=== PATIENT | female | born 1975 | race Caucasian/White ===

== ENCOUNTER 2025-06-24 06:29 | Inpatient (IN) | payer BC, SELFPAY ==
[2025-06-24] VITALS (12 sets, daily range): BP systolic 116–150; BP diastolic 69–92; BMI 33.9; BMI 33.1
--- NOTE | 2025-06-24 04:52 | ED.GENMED ---
History of Present Illness
General
Chief Complaint: Abdominal Pain
Time Seen by Provider: 06/24/25 04:53
History of Present Illness
History of Present Illness:
FOCUSED PAST MEDICAL HISTORY
- Anemia
REVIEW OF OLD RECORDS
- Patient was admitted with a right tibial fracture in 2019 and was also having acute on chronic iron deficiency anemia
- Her hemoglobin was as low as 6.4 and improved to 7.6 after unit of blood.
- At that time it was felt that her anemia was related to menstrual blood loss patient states that she has not had any vaginal bleeding/menses regularly since 3 months ago
Note:
CHIEF COMPLAINT(S)
Shortness of breath and rectal bleeding.
HISTORY OF PRESENT ILLNESS
The patient is a 49-year-old female with a history of iron deficiency anemia, currently receiving iron infusions. She reports an onset of rectal bleeding that began tonight, which she describes as red in color. She also notes a longstanding history
of shortness of breath, which she feels is worsening. The patient has experienced abdominal bloating and severe pain since 8:00 PM, with the pain escalating in intensity. She describes multiple episodes of diarrhea, mentioning that the bowel
movement was dark with an eventual presence of visible blood, resembling coffee grounds with red. The patient states her hemoglobin was recently measured at 7.7, down from 10 two months prior. She was advised to consider a blood transfusion in
addition to iron infusions. The patient denies vomiting blood but experiences nausea and a sensation of fullness without emesis. She reports being unable to catch her breath easily, even with minimal exertion like putting on shoes. There is no
recent history of colitis.
PAST MEDICAL AND SURGICAL HISTORY
Iron deficiency anemia.
CHRONIC MEDICAL CONDITIONS SIGNIFICANTLY AFFECTING CARE
Iron deficiency anemia.
PHYSICAL EXAM
General: Alert, appears somewhat uncomfortable
Skin: Warm, dry.
Head: Normocephalic, atraumatic.
Neck: Supple, trachea midline.
Eyes, Ears, Nose, and Throat: Oral mucosa moist.
Cardiovascular: Normal peripheral perfusion, No edema.
Respiratory: Respirations are non-labored.
Gastrointestinal: Abdomen nondistended, diffuse abdominal tenderness. Brown liquid stool briskly heme positive. No hemorrhoids noted.
Back: Normal range of motion, Normal alignment.
Musculoskeletal: Normal range of motion, normal strength.
Neurological: Alert and oriented to person, place, time, and situation, No focal neurological deficit observed.
Psychiatric: Cooperative, appropriate mood & affect.
PLAN
Order blood work, including type and screen.
Administer nausea medication and fluids.
Prescribe stomach acid medication.
Consider a possible transfusion based on blood work results.
Perform a computed tomography (CT) scan of the abdomen.
Perform a chest X-ray.
Evaluate for the necessity of further diagnostic interventions based on initial test outcomes.
DIFFERENTIAL DIAGNOSIS
The Differential Diagnosis includes, in no particular order and is not limited to:
1. Gastrointestinal bleed
2. Iron deficiency anemia exacerbation
3. Peptic ulcer disease with bleeding
4. Colitis
5. Gastrointestinal malignancy
6. Hemorrhoids
7. Esophageal varices
8. Diverticular disease
9. Inflammatory bowel disease
10. Upper gastrointestinal tract bleeding
SUMMARY OF ENCOUNTER
The patient, a 49-year-old female with iron deficiency anemia currently on iron infusions, presented to the emergency department with worsening shortness of breath and rectal bleeding. She described the bleeding as red and reported severe abdominal
pain and bloating beginning in the evening. Her bowel movements appeared dark with visible blood. Recent hemoglobin levels were 7.7 but are now 7.3. She was evaluated for a blood transfusion due to the significant drop in hemoglobin. Her respiratory
symptoms did not improve with minimal exertion.
ASSESSMENT
Symptomatic anemia likely due to gastrointestinal bleeding, contributing to the patients worsened shortness of breath and weakness.
PLAN
- Administer nausea medication and fluids to manage symptoms.
- Consider blood transfusion pending comprehensive lab results.
- Prescribe medication to reduce stomach acid.
- Conduct CT scan of the abdomen to identify potential sources of gastrointestinal bleeding or pathology.
- Perform chest X-ray to evaluate for any respiratory complications.
- Continuous monitoring and reassessment to determine further diagnostic or therapeutic interventions.
INDEPENDENT REVIEW OF LABS AND INTERPRETATION OF TESTS
My independent review of hemoglobin indicates a level of 7.3, which is low and concerning for anemia, consistent with recent lab values indicating a previous level of 7.7.
My independent interpretation of the chest X-ray shows a clear result, ruling out acute respiratory processes.
My independent interpretation of the CT scan is pending to evaluate potential sources of gastrointestinal bleeding or other pathologies.
PROCEDURES
CT scan of the abdomen was obtained to investigate gastrointestinal bleeding.
MEDICATION RECONCILIATION
Iron infusions ongoing. Consideration for blood transfusion based on hemoglobin levels. Prescribe antiemetic medication and proton pump inhibitor for symptom management.
MEDICAL DECISION MAKING
-Complexity of Data Reviewed: Chronic conditions affecting care include iron deficiency anemia. Differential Diagnosis includes gastrointestinal bleeding, iron deficiency anemia exacerbation, peptic ulcer disease with bleeding, hemorrhoids,
gastrointestinal malignancy, esophageal varices, diverticular disease, and upper gastrointestinal tract bleeding.
-Data:
Category 1
Reviewed non-emergency department records, including a history of laboratory values and patient-reported medical data.
Tests ordered: Hemoglobin level, CT scan of the abdomen, and chest X-ray.
Category 2
My independent interpretation of chest X-ray which was clear.
My independent review of the CT scan as pending for final interpretation.
Care significantly affected by abnormal hemoglobin.
-Risk:
Prescription medication was considered, including possible anticoagulants post-transfusion.
DIAGNOSIS
- Symptomatic anemia, ICD-10: D64.9
- Gastrointestinal bleeding, initial encounter, ICD-10: K92.2
RADIOLOGY
- Chest x-ray clear
- CT abdomen pelvis suggests short segment colitis
EKG
- Sinus 71, left axis deviation, no acute ST abnormality
LABS
- Hemoglobin 7.3, normal CRP
UPDATE
- Hemoglobin 7.3 w/ GI Bleed
- Has chronic iron deficiency anemia causing chronic SOB (but is now worsening).
- Multiple outpt iron infusions w/ [facility] and says outpt hgb was as high as 10-11 more recently.
- Briskly heme positive liquid brown stool. In past, was told low hgb was due to periods, but she has not been getting periods recently.
- BUN normal. hCG neg.
- Was anemic in 2019 when she was here and received blood transfusion.
- I have ordered one unit as she is symptomatic, but reports rather debilitating symptoms (weak, SOB, abd pain).
- RA sat 100%; doubt PE as I feel anemia is much more likely cause of SOB as the SOB has been a slow chronic progression of worsening.
- Normal BNP and cRP, but WBC 14. Had CT a/p.
Past History
Past History
ED Past Surgical History: Gynecological
Social History
Tobacco: Smoker
Alcohol: Occasional
Personal: Single
Employment: Employed
Phy Exam
Physical Exam
Physical Exam:
See HPI
Course
Orders/Labs/Results
Orders:
Orders
06/24/25 04:52
0.9% Sodium Chloride 1000 ml [Nss] 1,000 ml IV BOLUS
Test Result ONCE
06/24/25 05:02
CT Abd/pelvis W Iv Cont Urgent
Comment:
Reason For Exam: diffuse abd pain; bloody diarrhea
CR Chest - 2 Views Urgent
Comment:
Reason For Exam: sob
06/24/25 05:06
Famotidine [Pepcid] 20 mg IV NOW STA
Ondansetron Injectable [Zofran] 4 mg IV NOW STA
Pantoprazole [Protonix IV] 40 mg IV NOW STA
06/24/25 05:07
Type+Screen Urgent
CRP [C-Reactive Protein] Urgent
Complete Blood Count/With Diff Urgent
Comprehensive Metabolic Panel Urgent
Ferritin Urgent
HCG, Serum Qualitative Screen Urgent
Iron Urgent
Lipase Urgent
NT-proBNP Urgent
Total Iron Binding Urgent
06/24/25 05:19
* Blood Bank Products Urgent
Blood Bank Products: *Packed RBC Leuko (PRBC's
Quantity: 1
Transfuse Today: Yes
Reason: Anemia
06/24/25 Breakfast
NPO
Allow oral meds: Yes
Allow clear liquids: Sips of Clears
06/24/25 06:07
Electrocardiogram (*1) Urgent
Reason for Study: Shortness of Breath
EKG- Treatment ONCE
06/24/25 06:18
Admit/Transfer Patient As Directed
Co-Sign Provider:
Level of Care: Inpatient admission
Assign to:: Telemetry
Physician / Group: Reed
Diagnosis: Colitis, Acute / Chronic Anemia
Reason for Telemetry: Arrhythmia
Date to Stop Telemetry: 06/27/25
Time to Stop Telemetry: 11:00
Reason for Hospitalization: Colitis, Acute / Chronic Anemia
Expected length of stay greater than two midnights?: Yes
ELOS- Estimated Length of Stay in days: 3
I certify the patient meets the requirements for IP care: Yes
PRN Pain Medication Management As Directed
May give lesser potent ordered pain med per pt: Yes
preference::
Protocol:: Medication orders for pain may be administered in a
manner that supports deferring to patient preference
when the pt is:
- Requesting an ordered lesser potent pain medication.
Least to most potent pain medications are defined
as: acetaminophen < NSAID < tramadol < opioids
(morphine, oxycodone, hydromorphone).
- Requesting a lesser dose of the same medication IF
ORDERED.
- Requesting a less intrusive route of administration
if both routes are prescribed by the provider (PO <
IV).
06/24/25 06:19
Code Status As Directed
Resuscitation Status: Full Code
06/24/25 06:23
Lactic Acid Urgent
06/24/25 06:28
Piperacillin/Tazo 3.375 Gram [Zosyn] 3.375 gram in 50 ml IV NOW
06/24/25 11:45
0.9% Sodium Chloride 1000 ml [Nss] 1,000 ml IV 75 mls/hr
Acetaminophen [Tylenol] 650 mg PO Q4HPRN PRN
HYDROmorphone [Dilaudid] 0.5 mg IV Q4HPRN PRN
Ondansetron Injectable [Zofran] 4 mg IV Q6HPRN PRN
06/24/25 11:45
Consult Notification Routine
Specialty to Notify: Gastroenterology
Date consulting provider notified: 06/24/25
Time consulting provider notified: 12:40
Notified:: Provider
Comment: Sheree
GASTROINTESTINAL CONSULT Routine
Consulting Provider: Willow Doe
Was physician already notified: No
Reason for consult: Colitis, Acute / Chronic Anemia
Stool Culture Routine
SELENA Source: Feces/Stool
Specimen Description:
Activity As Directed
Activity Level: Bedrest
EKG with chest pain [ECG as needed] As Directed
ECG as needed for:: Chest Pain
I/O [Intake/ Output] As Directed
Frequency: Per unit guidelines
Pneumatic Compression Sleeves As Directed
Type: Knee high
Vital Signs As Directed
Frequency: Per unit guidelines
Oxygen Therapy [O2 Therapy] [RESP] Routine
Titrate/Wean O2 to maintain O2 sat greater than (%): 94
DX Deep Vein Thrombosis Video Routine
06/24/25 12:00
Piperacillin/Tazo 3.375 Gram [Zosyn] 3.375 gram in 50 ml IV Q6H
06/24/25 12:13
HH [H&H] Q8H
06/24/25 20:52
HH [H&H] Q8H
06/25/25 03:45
HH [H&H] Q8H
06/25/25 06:00
Basic Metabolic Panel IN AM
Complete Blood Count/No Diff IN AM
06/25/25 08:00
Pantoprazole [Protonix IV] 40 mg IV DAILY
06/27/25 11:00
DC Protocol for Telemetry ONCE
Abnormal Lab Results
06/24/25
05:07
WBC 14.2 H 10^3/uL
(4.8-10.8)
RBC 2.86 L 10^6/uL
(4.20-5.40)
Hgb 7.3 L g/dL
(12.0-16.0)
Hct 24.2 L %
(37.0-47.0)
MCH 25.5 L pg
(27.0-31.0)
MCHC 30.2 L g/dL
(33.0-37.0)
RDW 17.8 H %
(11.5-14.5)
Plt Count 449 H 10^3/uL
(130-400)
Abs Immat Gran (auto) 0.2 H 10^3/uL
(0-0.05)
Absolute Neuts (auto) 11.0 H 10^3/uL
(1.4-6.5)
Absolute Monos (auto) 0.8 H 10^3/uL
(0.1-0.6)
Immature Gran % 1.2 H %
(0-0.5)
Neutrophils % 77.2 H %
(42.2-75.2)
Lymphocytes % 11.9 L %
(20.5-51.1)
Chloride 108 H mmol/L
(98-107)
Carbon Dioxide 21 L mmol/L
(22-30)
Glucose 119 H mg/dl
(70-99)
Crossmatch IS Only See Detail
06/24/25 05:07
06/24/25 05:07
Vital Signs
Initial and Last Documented VS:
Initial Vital Signs
Temp Pulse Resp BP Pulse Ox
36.4 C 98 22 144/92 98
06/24/25 04:46 06/24/25 04:46 06/24/25 04:46 06/24/25 04:46 06/24/25 04:46
Last Documented Vital Signs
Temp Pulse Resp BP Pulse Ox
37.0 C 87 18 138/80 96
06/24/25 19:52 06/24/25 19:52 06/24/25 19:52 06/24/25 19:52 06/24/25 19:52
*Pulse Oximetry
SaO2: 98
Oxygen Mode of Delivery: Room air
Patient hypoxic: no
*Critical Care Note
Total Time (30-74mins, 75-104mins- exclusive of procedures): Not Applicable
ED Attending Note
-
Portions of this chart may have been created with voice recognition software.� Occasional wrong word or��sound alike� substitutions may have occurred due to the inherent limitations of voice recognition software.
Discharge Plan
Departure
Patient Disposition: Admit
Date of Disposition: 06/24/25
Time of Disposition: 05:54
Presentation/result/management discussed w/ accepting MD/DO: Hospitalist
Discharge Problem:
Symptomatic anemia
Interventions
Interventions:
*Risk Screen - Suicide Last Done: 06/24/25 12:25
*General Assessment Last Done: 06/24/25 05:01
*Neglect/Abuse Screening Last Done: 06/24/25 04:46
*ED COVID-19 Vaccine History Last Done: 06/24/25 12:25
*ED Influenza Vaccine History Last Done: 06/24/25 05:01
[facility] Risk Assessment Tool Last Done: 06/24/25 04:54
*Nursing Disposition Last Done: 06/24/25 11:30
ZW-Damlsp-Wpufnqnuip Assessment Last Done: 06/24/25 05:23
Discharge Date and Time
Discharge Date/Time: 06/24/25 11:38
[2025-06-24] MEDS: ZOFRAN 4 MG IV (05:14)
[2025-06-24] MEDS: NSS 1000 IV ×2 (05:14→12:15)
[2025-06-24] MEDS: PEPCID 20 MG IV (05:15)
[2025-06-24] MEDS: PROTONIX IV 40 MG IV ×2 (05:15→20:12)
[2025-06-24 05:17] LABS: Hematocrit 24.2 % (37.0-47.0); Hemoglobin 7.3 g/dL (12.0-16.0); Mean Corp Hgb Conc. 30.2 g/dL (33.0-37.0); Mean Corpuscular Volume 84.6 fL (81.0-99.0); Nucleated Red Blood Cells % 0.2 %; Platelet Count 449 10^3/uL (130-400); Red Cell Dist. Width 17.8 % (11.5-14.5)
[2025-06-24 05:29] LABS: HCG, Serum Qualitative Screen Negative
[2025-06-24 05:33] LABS: ALT (SGPT) 26 U/L (0-35); AST (SGOT) 27 U/L (14-36); Albumin 4.0 g/dl (3.5-5.0); Alkaline Phosphatase 79 U/L (38-126); Blood Urea Nitrogen 17 mg/dl (7-17); Calcium 9.3 mg/dl (8.4-10.2); Carbon Dioxide 21 mmol/L (22-30); Chloride 108 mmol/L (98-107); Estimated Creatinine Clearance 112 ml/min; Glucose 119 mg/dl (70-99); Iron 98 ug/dl (37-170); Lipase 55 U/L (23-300); Potassium 4.3 mmol/L (3.5-5.1); Sodium 137 mmol/L (135-145); Total Protein 6.4 g/dl (6.3-8.2); eGFR > 60.00
[2025-06-24 05:43] LABS: Total Iron Binding Capacity 418 ug/dl (265-497)
[2025-06-24 05:46] LABS: C-Reactive Protein 8.90 mg/L (0.0-10.00)
--- NOTE | 2025-06-24 06:21 | HPS.HSE ---
Family Physician
-
Family Physician: * NONE
Chief Complaint
-
Abd Pain, Diarrhea
History of Present Illness
Patient is a 49y F with PMH significant for iron deficiency anemia who presents to ED complaining of abdominal pain and diarrhea. Patient states that she had SOB with activity yesterday while walking around [employer]. Yesterday evening
she felt bloated and reported diffuse abdominal discomfort. She notes that she felt more SOB with activity or with bending at the waist. Patient had diarrhea overnight - including waking from sleep x 3 to have BM. Patient notes that stool was
loose and contained 'coffee' appearing material and dark / maroon blood. After her most recent episode of diarrhea / bleeding, she presented to the ED for further evaluation.
Patient has iron deficiency anemia and is followed by Hematology. She has two iron infusions last week. Her Hgb has been 10-11 since October, but recent recheck (Wednesday) was 7.7 g/dL.
She had EGD and colonoscopy at [facility] in September were reportedly unremarkable. No prior capsule study.
Anemia previously attributed to menses. She notes that her LMP was March.
Stool noted to be heme positive in the ED.
Medical History
Past Medical History
Past Medical History: Reports Other
Additional Past Medical History:
Iron Deficiency Anemia
Past Surgical History: Reports Other
Additional Past Surgical History:
ORIF Right Tibia
Tubal Ligation
Social History
Tobacco: Smoker (Occasional smoker.)
Alcohol: Occasional
Personal:
Family History
Family History: CAD and Other (Father: CAD, Colon Cancer MGF: Gastric Cancer)
Allergies / Home Medications
Allergies reflects when Allergies were last updated in [employer].
Home Medications with original date entered in [employer]
Allergy/Medication List:
Allergies
Allergy/AdvReac Type Severity Reaction Status Date / Time
sulfamethoxazole (From Allergy Mild Hives Verified 06/24/25 04:50
Bactrim)
trimethoprim (From Bactrim) Allergy Mild Hives Verified 06/24/25 04:50
Home Medications
No Meds [No Current Medications] 06/24/25
Review of Systems
-
History Source: Patient
A 12 point ROS was completed and negative except as noted: Yes
Constitutional: Reports Fatigue; Denies Fever or Chills
Respiratory: Reports Trouble Breathing; Denies Cough
Cardiac: Denies Chest Pain or Palpitations
Abdomen/GI: Reports Abdominal Pain, Nausea, Diarrhea and Bloody Stools; Denies Vomiting, Black Stools or Anorexia
: Denies Dysuria, Flank Pain or Bleeding
Musculoskeletal: Denies Joint Pain or Edema
Neurological: Reports Dizzy; Denies Headache
Psych: Denies Depression or Anxiety
Physical Exam
Vital Signs
Vital Signs
Temp Pulse Resp BP Pulse Ox
97.6 F 91 16 140/80 99
06/24/25 04:46 06/24/25 06:02 06/24/25 05:30 06/24/25 06:02 06/24/25 05:30
Physical Exam
General: Other (Pale-appearing 49y F in no acute distress.)
HEENT: Moist mucous membranes and PERRLA
Respiratory: Clear; No Wheezes, Rales or Rhonchi
Cardiac: S1/S2 and Regular Rhythm; No Murmur
GI: Other (Abdomen is tender in the RUQ and suprapubic regions. Pos bowel sounds.)
Musculoskeletal: No Clubbing, No Cyanosis and No Edema
Neuro: AO x 3
Laboratory Results
-
06/24/25 05:07
06/24/25 05:07
Laboratory Results
Total Bilirubin 0.7 mg/dl (0.2-1.3) 06/24/25 05:07
AST 27 U/L (14-36) 06/24/25 05:07
ALT 26 U/L (0-35) 06/24/25 05:07
Alkaline Phosphatase 79 U/L (38-126) 06/24/25 05:07
Lipase 55 U/L (23-300) 06/24/25 05:07
Impression/Plan
-
A/P: Patient is a 49y F with PMH significant for iron deficiency anemia who presents to ED complaining of abdominal pain and diarrhea.
Colitis
Lower GI Bleeding
- Admit for further evaluation and treatment.
- New GI symptoms including abdominal pain and bloody diarrhea that started this afternoon.
- CT scan done showing acute colitis mostly at splenic flexure area.
- ? ischemic v infectious v other. Check serum lactate.
- Empiric abx. Stool studies with next BM.
- Follow BP and avoid hypotension / hypoperfusion. CT with no specific areas of vascular stenosis / occlusion noted.
- NPO, IVF, pain control, etc.
- GI consulted for additional recommendations.
Acute Blood Loss Anemia on Chronic Iron Deficiency Anemia
- Likely secondary to new GI bleeding.
- No prior GI symptoms / obvious bleeding with anemia episodes in the past.
- Transfusion ordered in the ED. Follow H&H for changes.
- Follow for clinical improvement.
- GI eval as noted above.
DVT Prophylaxis: SCDs
Code Status: Full
[2025-06-24 06:22] LABS: Ferritin 93.5 ng/ml (6.24-137)
[2025-06-24] MEDS: ZOSYN 50 IV ×3 (06:49→17:34)
--- NOTE | 2025-06-24 08:57 | EDCM ---
Reviewed chart, pt has a history of iron deficiency anemia, admitted with colitis and chronic anemia, receiving blood transfusion in ED.
I met with pt and her , they live [place] [address] [facility], pt is independent in ADLs, personal care and ambulation. No assistive device, no DME in home.
Confirms prescription coverage
No hx VN or SNF
Does not currently have PCP, has appt to establish new PCP next month
Pharmacy: [facility] [place]
Anticipate discharge home, no needs, CM will continue to follow.
--- NOTE | 2025-06-24 12:00 | PTCARENOTE ---
Pt transferred to 4W. Pt able to walk from stretcher to bed. AAOx3 oriented to room and unit. Safety measures in place, call wright within reach.
[2025-06-24 12:29] LABS: Hematocrit 27.3 % (37.0-47.0); Hemoglobin 8.4 g/dL (12.0-16.0)
--- NOTE | 2025-06-24 12:45 | CON.GI ---
Consultation
-
Date/Time Consultation Requested: 06/24/25
Date/Time Consultation Performed: 06/24/25
Requesting Provider: Dr. Medeiros
Performing Provider: Dr. Bentley
Reason for Consultation: MARK, colitis
Medical History
Chief Complaint / HPI
Chief Complaint: abdominal pain, bloody diarrhea
History of Present Illness:
Chelo Gustafson is a 49 y.o. female with a past medical history of iron deficiency anemia admitted with complaints of abdominal pain and diarrhea. She reports that she was walking around [place] yesterday, became short of breath with
minimal exertion. Additionally, she had a bloating sensation with diffuse abdominal discomfort which was followed by multiple episodes of diarrhea. She was woken up with multiple episodes overnight, initially the stool was very loose and had
coffee ground material followed by maroon-colored stool. Of note, she was recently worked up for iron deficiency anemia with an endoscopy and colonoscopy at [facility] in September 2024. Reportedly, both were unremarkable for GI source of anemia.
There was no capsule study performed for small bowel assessment. She follows with hematology, gets iron infusions, reports having 2 iron infusions last week. Her hemoglobin has been around 10-11 since October 2024, was noted to be 7.7 on Wednesday.
When she was here in 2019, her hgb was as low as 6.4, requiring transfusion. She was supposed to see her outpatient GI doc on 06/11, cancelled the appt due to work conflicts and she was feeling well at that time. Denies any overt GI bleeding in the
past. She typically moves her bowels regularly, brown and well formed. Family history is significant for father with colon cancer, maternal grandfather had gastric cancer.
Hgb 7.3 --> 8.4 s/p 1 unit of PRBC, MCV 84
WBC 14.2, Plt 449
BUN 17
Lactate 0.9
Iron 98, TIBC 418, Ferritin 93.5, % sat 23
Tbili 0.7, AST 27, ALT 26, Alk phos 79
CRP 8.9
Lipase 55
CTAP with IV contrast: Liver is top normal. Moderately to severely diffuse decreased attenuation throughout the liver consistent with moderate to severe diffuse [place] steatosis. The gallbladder, bile ducts and pancreas appear normal. The spleen
is mildly enlarged. There is a large paraesophageal hiatal hernia containing most of the stomach. There is no abnormal gastric distention. There appears to be diffuse gastric wall thickening. The duodenum and jejunum appear normal. There is a
small fat-containing umbilical hernia. There is a moderate amount of fecal material in the cecum and proximal ascending colon. There is a moderate amount of submucosal edema and wall thickening in the distal transverse colon and splenic flexure of
the colon. Mild amount of wall thickening and submucosal edema in the proximal descending colon. Most of the descending colon is collapsed. The sigmoid colon is most collapsed. No abnormal colonic or rectal distention. Multiple calcified
uterine myomas.
Past Medical History
Past Medical History: Other (Iron deficiency anemia)
Past Surgical History: Gynecological and Orthopedic
Social History
Tobacco: Smoker
Alcohol: Occasional
Drug: None
Personal:
Family History
Family History: Other (Father- CRC; Maternal grandfather-gastric ca)
Allergies / Home Medications
Allergy/AdvReac Type Severity Reaction Status Date / Time
sulfamethoxazole (From Allergy Mild Hives Verified 06/24/25 04:50
Bactrim)
trimethoprim (From Bactrim) Allergy Mild Hives Verified 06/24/25 04:50
�Medication �Instructions �Recorded
No Meds [No Current Medications] 06/24/25
Review of Systems
-
History Source: Patient
All other systems: A 12 pt ROS was Negative except as stated above in HPI
Vital Signs
Temp Pulse Resp BP Pulse Ox
99.1 F 77 18 150/81 96
06/24/25 11:51 06/24/25 11:51 06/24/25 11:51 06/24/25 11:51 06/24/25 11:51
Physical Exam
Exam
General: Well Developed and Well Nourished
Results
WBC 14.2 10^3/uL (4.8-10.8) H 06/24/25 05:07
Hgb 8.4 g/dL (12.0-16.0) L 06/24/25 12:13
Hct 27.3 % (37.0-47.0) L 06/24/25 12:13
MCV 84.6 fL (81.0-99.0) 06/24/25 05:07
Plt Count 449 10^3/uL (130-400) H 06/24/25 05:07
Absolute Neuts (auto) 11.0 10^3/uL (1.4-6.5) H 06/24/25 05:07
Sodium 137 mmol/L (135-145) 06/24/25 05:07
Potassium 4.3 mmol/L (3.5-5.1) 06/24/25 05:07
Chloride 108 mmol/L (98-107) H 06/24/25 05:07
Carbon Dioxide 21 mmol/L (22-30) L 06/24/25 05:07
BUN 17 mg/dl (7-17) 06/24/25 05:07
Creatinine 0.7 mg/dL (0.6-1.0) 06/24/25 05:07
Calcium 9.3 mg/dl (8.4-10.2) 06/24/25 05:07
Total Bilirubin 0.7 mg/dl (0.2-1.3) 06/24/25 05:07
AST 27 U/L (14-36) 06/24/25 05:07
ALT 26 U/L (0-35) 06/24/25 05:07
Alkaline Phosphatase 79 U/L (38-126) 06/24/25 05:07
Lipase 55 U/L (23-300) 06/24/25 05:07
Diagnostic Image Results:
Prior GI Procedures:
EGD:
Colonoscopy:
Assessment / Plan
-
49 y.o. female with pmhx chronic iron deficiency anemia admitted acute on chronic symptomatic MARK with acute onset abdominal pain followed by bloody diarrhea. CT A/P with findings of a large paraesophageal hernia and left-sided colitis.
#Acute on Chronic MARK
#Paraesophageal hernia
#Bloody Diarrhea
#Abdominal Pain
#Left-sided Colitis
Given pattern of symptoms and distribution of colitis on imaging, it is highly suspicious for ischemic colitis, other possibilities include infectious and inflammatory, which is less likely given the acuity of her sx. Reporteldy, she has had a
recent EGD/Colonoscopy in September 2024 at [facility], however, I do not have the reports available for review. No VCE for small bowel assessment completed. Interestingly, her acute drop in anemia PREDATES her symptoms and bloody diarrhea. I suspect her
symptomatic anemia could have let to transient hypoperfusion resulting in ischemic colitis. Currently, she feels well and has a benign exam, no recurrance of bloody stool and denies any current abdominal pain.
A/P:
Trend hgb
PPI IV BID
IVF
Stool studies
Obtain records from [facility]-- recent EGD/Colonoscopy, certainly her paraesophageal hernia could be a source of anemia (i.e. stewart erosions or ulcers), will assume none were found as no intervention perform during EGD
Depending on clinical course, may not require repeat endoscopic evaluation and could return to her primary GI doc for outpatient capsule
-
-
Thank you for consultation and allowing me to participate in the patient's care. Please call the occupational therapy technician GI physician during the after hours with any questions or concerns.
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
[2025-06-24] MEDS: NSS (PRESERVATIVE FREE) 10 ML IV (20:12)
[2025-06-24 21:11] LABS: Hematocrit 25.5 % (37.0-47.0); Hemoglobin 8.1 g/dL (12.0-16.0)
--- NOTE | 2025-06-24 21:30 | PTCARENOTE ---
Patient states her hands/fingers are swollen and that her rings are tight which is not typical for her. Reports urinating well and is inquiring if the IVF can be slowed or dc'd. Messaged DERMATOLOGY PHYSICIAN ASSISTANT. NSS decreased from 100mls to 75mls/hr.
[2025-06-24] MEDS: ZOSYN IV (23:29)
[2025-06-25] MEDS: NSS 1000 IV (01:53)
[2025-06-25] MEDS: ZOSYN IV (02:25)
--- NOTE | 2025-06-25 02:26 | PTCARENOTE ---
Pt refused new bag of NSS to reported hand/finger swelling. CREDIT SUPPORT SPECIALIST made aware.
[2025-06-25 03:08] VITALS: BP 121/78
[2025-06-25 04:23] LABS: Hematocrit 26.5 % (37.0-47.0); Hemoglobin 8.1 g/dL (12.0-16.0); Mean Corp Hgb Conc. 30.6 g/dL (33.0-37.0); Mean Corpuscular Volume 85.5 fL (81.0-99.0); Platelet Count 386 10^3/uL (130-400); Red Cell Dist. Width 18.2 % (11.5-14.5)
[2025-06-25 04:24] LABS: Hematocrit 26.4 % (37.0-47.0); Hemoglobin 8.2 g/dL (12.0-16.0)
[2025-06-25 04:47] LABS: Blood Urea Nitrogen 6 mg/dl (7-17); Calcium 8.8 mg/dl (8.4-10.2); Carbon Dioxide 23 mmol/L (22-30); Chloride 109 mmol/L (98-107); Estimated Creatinine Clearance 110 ml/min; Glucose 98 mg/dl (70-99); Potassium 4.3 mmol/L (3.5-5.1); Sodium 137 mmol/L (135-145); eGFR > 60.00
[2025-06-25] MEDS: ZOSYN 50 IV (05:19)
[2025-06-25 07:45] VITALS: BP 140/80
--- NOTE | 2025-06-25 08:01 | W.PN.GI.CBS2 ---
Today's Communication / Plan
-
Hgb stable. Get records from [facility]--once reviewed and everything normal, okay for d/c and outpatient f/u with her primary gi doc for VCE and repeat CBC as outpatient
Assessment / Plan
-
49 y.o. female with pmhx chronic iron deficiency anemia admitted acute on chronic symptomatic MARK with acute onset abdominal pain followed by bloody diarrhea. CT A/P with findings of a large paraesophageal hernia and left-sided colitis.
#Acute on Chronic MARK
#Paraesophageal hernia
#Bloody Diarrhea
#Abdominal Pain
#Left-sided Colitis
Given pattern of symptoms and distribution of colitis on imaging, it is highly suspicious for ischemic colitis, other possibilities include infectious and inflammatory, which is less likely given the acuity of her sx. Reporteldy, she has had a
recent EGD/Colonoscopy in September 2024 at [facility], however, I do not have the reports available for review. No VCE for small bowel assessment completed. Interestingly, her acute drop in anemia PREDATES her symptoms and bloody diarrhea. I suspect her
symptomatic anemia could have let to transient hypoperfusion resulting in ischemic colitis. Currently, she feels well and has a benign exam, no recurrance of bloody stool and denies any current abdominal pain.
A/P:
Trend hgb
PPI IV BID
IVF
Stool studies--no BM since admission
Obtain records from [facility]-- recent EGD/Colonoscopy, certainly her paraesophageal hernia could be a source of anemia (i.e. stewart erosions or ulcers), will assume none were found as no intervention perform during EGD-- if able to confirm these
were normal, I am okay with her going home today and following up with her primary GI doctor for small bowel capsule study. This is what she prefers and very much wants to go home today.
Subjective
Subjective
Date of Service: June 25, 2025
Patient seen in follow-up. She states she feels much better. Hemoglobin stable at 8.1 this morning.
Objective
Data Reviewed
Laboratory Data:
Laboratory Results
06/25/25 04:00
06/25/25 04:00
Laboratory Results
Total Bilirubin 0.7 mg/dl (0.2-1.3) 06/24/25 05:07
AST 27 U/L (14-36) 06/24/25 05:07
ALT 26 U/L (0-35) 06/24/25 05:07
Alkaline Phosphatase 79 U/L (38-126) 06/24/25 05:07
Lipase 55 U/L (23-300) 06/24/25 05:07
Vital Signs and I&O:
Vital Signs
Temp Pulse Resp BP Pulse Ox
98.5 F 108 18 121/78 94
06/25/25 03:08 06/25/25 03:08 06/25/25 03:08 06/25/25 03:08 06/25/25 03:08
I&O
06/24/25 06/25/25 06/26/25
06:59 06:59 06:59
Intake Total 0 1859
Balance 0 0 1859
Physical Exam
Physical Exam
HEENT: Anicteric and Moist mucous membranes
GI: Soft, Non Distended, Non Tender and Normal Bowel Sounds
[2025-06-25] MEDS: PROTONIX IV IV (08:32)
[2025-06-25] MEDS: NSS (PRESERVATIVE FREE) IV (08:32)
--- NOTE | 2025-06-25 11:36 | CM ---
Patient left the hospital Against Medical Advice this am.
--- NOTE | 2025-06-25 13:50 | W.PN.UPDATE ---
Update Note
Progress Note Update
Was informed by nursing she was leaving. She did sign the AMA paperwork. However she did not wait until I was up in the room and she already had left. In fact the room was already cleaned by the time I got up to her floor
== END 2025-06-25 09:54 | disposition left against medical advice (07) | DRG 812 ==
LOC: 4 WEST ACU 06:29
PROVIDERS: ADMITTING PHYSICIAN Hospitalist; ATTENDING PHYSICIAN Hospitalist; CONSULT PHYSICIAN Psychiatry & Neurology Psychiatry; EMERGENCY PHYSICIAN Emergency Medicine; OTHER PHYSICIAN Internal Medicine
DX: D50.8 Other iron deficiency anemias (principal); K51.511 Left sided colitis with rectal bleeding; K55.9 Vascular disorder of intestine, unspecified; K44.9 Diaphragmatic hernia without obstruction or gangrene; F17.200 Nicotine dependence, unspecified, uncomplicated; Z80.0 Family history of malignant neoplasm of digestive organs; Z82.49 Family history of ischemic heart disease and other diseases of the circulatory system; D62 Acute posthemorrhagic anemia; K42.9 Umbilical hernia without obstruction or gangrene; Z88.1 Allergy status to other antibiotic agents; Z53.29 Procedure and treatment not carried out because of patient's decision for other reasons
CPT/HCPCS: 71046; 74177; 80048; 80053; 82728; 83540; 83550; 83605; 83690; 83880; 84703; 85014; 85018; 85025; 85027; 86140; 86850; 86900; 86901; 86920; 93005; 96361; 96374; 96375; 99285; P9016; Q9967